=== PATIENT | female | born 1985 | race African-American/Black ===

== ENCOUNTER 2020-05-12 19:50 | Emergency (ER) | payer SELFPAY ==
[2020-05-13 05:06] LABS: SARS-CoV-2 by NAA DETECTED (NotDetected)
[2020-05-13 05:07] LABS: SARS-CoV-2 MS2 Positive; SARS-CoV-2 N Gene Positive; SARS-CoV-2 S Gene Positive; SARS-CoV-2 orf1ab Positive
== END 2020-05-12 22:03 | disposition home or self-care (01) ==
LOC: ERS 19:50
DX: U07.1 COVID-19 (principal)
CPT/HCPCS: 87635; 99283; U0003